=== PATIENT | male | born 1970 | race Caucasian/White ===

== ENCOUNTER 2017-07-26 09:01 | Emergency (ER) | payer OTHER, BC ==
[2017-07-26] MEDS ORDERED: Metoclopramide 10 MG/2 ML SDV IVPUSH ONE (09:24)
[2017-07-26] MEDS ORDERED: HYDROmorphone 0.5 MG/0.5 ML Syringe IVPUSH ONE ×2 (09:24→10:39)
--- NOTE | 2017-07-26 09:29 | EDM.PDOC ---
ED HPI GENERAL MEDICAL PROBLEM - General Chief Complaint: Flank Pain Stated Complaint: L FLANK PAIN Time Seen by Provider: 07/26/17 09:24 Source of Information: Reports: Patient, Family (spouse) History Limitations: Reports: No Limitations - History of Present Illness INITIAL COMMENTS - FREE TEXT/NARRATIVE: 46-year-old male presents to the ED with acute onset of left flank pain starting about 2 hours ago. He was already at work when the pain hits suddenly in his left flank and radiates slightly around the left upper abdomen. Associated nausea and vomiting and constant feeling of need to either defecate or void. He had any problems with kidney stones in the past. Previous abdominal surgery. 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) Left Flank Pain Score (Numeric/FACES): 9 - Related Data Allergies Allergy/AdvReac Type Severity Reaction Status Date / Time No Known Allergies Allergy Verified 07/26/17 09:17 Home Meds: Home Meds Amitriptyline [Elavil] 25 mg PO BEDTIME 07/26/17 [History] Gabapentin [Neurontin] 1.5 tab PO DAILY 07/26/17 [History] Gabapentin [Neurontin] 300 mg PO BEDTIME 07/26/17 [History] Omeprazole 20 mg PO DAILY 07/26/17 [History] Ondansetron [Zofran ODT] 4 mg PO Q6H #5 tab.dis 07/26/17 [Rx] oxyCODONE HCl/Acetaminophen [Percocet 5-325 mg Tablet] 1 - 2 each PO Q4H PRN # 10 tablet 07/26/17 [Rx] Past Medical History Gastrointestinal History: Reports: GERD Psychiatric History: Reports: Depression, PTSD - Past Surgical History Musculoskeletal Surgical History: Reports: Arthroscopic Knee Social & Family History - Tobacco Use Smoking Status *Q: Never Smoker - Caffeine Use Caffeine Use: Reports: None - Recreational Drug Use Recreational Drug Use: No - Living Situation & Occupation Living situation: Reports: Occupation: Employed ED ROS GENERAL - Review of Systems Review Of Systems: See Below Constitutional: Denies: Fever, Chills, Malaise, Weakness, Fatigue, Weight Loss HEENT: Reports: No Symptoms Respiratory: Reports: No Symptoms Cardiovascular: Reports: No Symptoms Endocrine: Reports: No Symptoms GI/Abdominal: Reports: Abdominal Pain (Left upper lateral abdominal pain but primary pain is in the left flank.), Nausea, Vomiting (Associated with the onset of the pain.) : Reports: Frequency Musculoskeletal: Reports: Back Pain (Left flank pain of acute onset.) Skin: Reports: No Symptoms Neurological: Reports: No Symptoms Psychiatric: Reports: No Symptoms ED EXAM, RENAL/ - Physical Exam Exam: See Below Exam Limited By: No Limitations General Appearance: Alert, WD/WN, Mild Distress (Just finished vomiting.) Eye Exam: Bilateral Eye: Normal Inspection (No jaundice) Throat/Mouth: Normal Inspection, Normal Lips, Normal Teeth, Normal Oropharynx Head: Atraumatic, Normocephalic Neck: Normal Inspection, Supple, Non-Tender, Full Range of Motion Respiratory/Chest: No Respiratory Distress, Lungs Clear, Normal Breath Sounds, No Accessory Muscle Use Cardiovascular: Normal Peripheral Pulses, Regular Rate, Rhythm, No Edema, No Gallop, No Murmur GI/Abdominal: Soft, Non-Tender, No Organomegaly, No Abnormal Bruit, No Mass, Pelvis Stable, Abnormal Bowel Sounds (Male) Exam: No Hernia Back Exam: Normal Inspection, Full Range of Motion. No: CVA Tenderness (L), CVA Tenderness (R) Extremities: Normal Inspection, Normal Range of Motion, Non-Tender, No Pedal Edema Neurological: Alert, Oriented, CN II-XII Intact, Normal Cognition, Normal Gait Psychiatric: Normal Affect, Normal Mood Skin Exam: Warm, Dry, Intact, Normal Color, No Rash Course - Vital Signs Last Recorded V/S: Last Vital Signs Temp 36.2 C 07/26/17 09:14 Pulse 75 07/26/17 09:14 Resp 16 07/26/17 09:14 BP 148/98 H 07/26/17 09:14 Pulse Ox 100 07/26/17 09:14 - Orders/Labs/Meds Orders: Active Orders 24 hr Category Date Time Status URINALYSIS W/MICROSCOPIC [UA W/MICROSCOPIC] [URIN] Stat Lab 07/26/17 09:25 Uncollected Ketorolac [Toradol] Med 07/26/17 09:30 Active 30 mg IVPUSH ONETIME Sodium Chloride 0.9% [Normal Saline] 1,000 ml Med 07/26/17 09:30 Active IV ASDIRECTED Medication Orders Sodium Chloride (Normal Saline) 1,000 mls @ 150 mls/hr IV ASDIRECTED TAMELA Last Admin: 07/26/17 09:35 Dose: 150 mls/hr Ketorolac Tromethamine (Toradol) 30 mg IVPUSH ONETIME TAMELA Last Admin: 07/26/17 09:37 Dose: 30 mg Meds: Medications Generic Name Dose Route Start Last Admin Trade Name Freq PRN Reason Stop Dose Admin Sodium Chloride 1,000 mls @ 150 mls/hr 07/26/17 09:30 07/26/17 09:35 Normal Saline IV 150 mls/hr ASDIRECTED TAMELA Administration Ketorolac Tromethamine 30 mg 07/26/17 09:30 07/26/17 09:37 Toradol IVPUSH 30 mg ONETIME TAMELA Administration Discontinued Medications Generic Name Dose Route Start Last Admin Trade Name Freq PRN Reason Stop Dose Admin Hydromorphone HCl 0.5 mg 07/26/17 09:24 07/26/17 09:38 Dilaudid IVPUSH 07/26/17 09:25 0.5 mg ONETIME ONE Administration Hydromorphone HCl 0.5 mg 07/26/17 10:39 07/26/17 10:42 Dilaudid IVPUSH 07/26/17 10:40 0.5 mg STAT ONE Administration Metoclopramide HCl 10 mg 07/26/17 09:24 07/26/17 09:35 Reglan IVPUSH 07/26/17 09:25 10 mg ONETIME ONE Administration - Radiology Interpretation Free Text/Narrative:: 46-year-old male presents to the ED with acute onset of left flank pain with associated feeling of need to void and defecate and nausea and vomiting. Pain came on rather quickly about an hour and a half ago while he was at work. No past history of kidney stones. Benign abdominal examination. History and physical are compatible with renal colic. Stone must be high up in the proximal ureter clinically. Plan IV normal saline at 150 mils per hour. Given Dilaudid 0.5 mg with Reglan 10 mg and Toradol 30 mg IV for pain relief. Urinalysis and CT of the abdomen per renal protocol to be done. - Re-Assessments/Exams Free Text/Narrative Re-Assessment/Exam: 07/26/17 10:16 told there will be a delay in getting a CT of his abdomen and pelvis per renal protocol as the CT machine is undergoing routine maintenance and is torn down at this time. Tentatively a VF and running within the hour. 07/26/17 10:40: Pain is getting worse. Pain is moving also downwards in the abdomen suggesting the stone is moving. Will repeat Dilaudid 0.5 mg IV. 07/26/17 12:12 CT confirms a 5.5 mm stone in the distal left ureter at the UVJ. It is nearly in his urinary bladder. Is likely to pass this later today. He will therefore be discharged home with a urinary strainer. Percocet tabs 02/09/25 one or 2 every 4-6 hours needed for pain relief. 10 tablets provided. Note given to excuse him from the workplace today. Departure - Departure Time of Disposition: 12:12 Disposition: Home, Self-Care 01 Condition: Fair Clinical Impression: Renal colic on left side - Discharge Information Prescriptions: Ondansetron [Zofran ODT] 4 mg PO Q6H #5 tab.dis oxyCODONE HCl/Acetaminophen [Percocet 5-325 mg Tablet] 1 - 2 each PO Q4H PRN # 10 tablet PRN Reason: pain relief. Instructions: Renal Colic, [id number] Referrals: Leena Au DO [Primary Care Provider] - Forms: ED Department Discharge, ED Return to Work/School Form Additional Instructions: Evaluation in the emergency room today in regards to acute onset of left flank pain radiating to the left upper abdomen. History was compatible with renal colic and is now been confirmed by CT exam which shows a 4.5 mm stone in the lower portion of the left ureter 8 is nearly in the urinary bladder has proximal be quarter-inch to travel treatment is plenty of fluids today. Activity as tolerated. Strain urine through a strainer over the next day or so to make sure that she passed the stone. It will feel like a small palpable or walk. There were no other stones in either kidney to be problematic in the near future. Diet is no calcium added IV calcium supplements monitors soft drink intake to minimize oxalates which helped cause kidney stones. I did send her home with a few pain pills Percocet 02/09/25 one or 2 every 4-6 hours as needed for pain relief until the stone passes. Also Zofran 4 mg under the tongue every 4-6 hours if needed for nausea or vomiting induced by pain. Suggest taking the rest the day off of work. - My Orders Last 24 Hours: My Active Orders 07/26/17 09:25 URINALYSIS W/MICROSCOPIC [UA W/MICROSCOPIC] [URIN] Stat 07/26/17 09:30 Ketorolac [Toradol] 30 mg IVPUSH ONETIME Sodium Chloride 0.9% [Normal Saline] 1,000 ml IV ASDIRECTED - Assessment/Plan Last 24 Hours: My Active Orders 07/26/17 09:25 URINALYSIS W/MICROSCOPIC [UA W/MICROSCOPIC] [URIN] Stat 07/26/17 09:30 Ketorolac [Toradol] 30 mg IVPUSH ONETIME Sodium Chloride 0.9% [Normal Saline] 1,000 ml IV ASDIRECTED
[2017-07-26] MEDS ORDERED: Ketorolac 30 MG/ML SDV IVPUSH SCH (09:30)
[2017-07-26] MEDS ORDERED: Sodium Chloride 0.9% 1,000 ML IV SCH (09:30)
--- NOTE | 2017-07-26 12:06 | CT ---
CT abdomen and pelvis Technique: Multiple axial sections were obtained from above the dome of the diaphragm inferiorly through the pubic symphysis. Intravenous and oral contrast was not utilized. Study has been performed as a ureteral stone protocol. Comparison: No previous abdominal imaging. Findings: Inflammatory change is seen around the left kidney and around the left renal pelvis and proximal left ureter. Left ureter is dilated to the UVJ. These findings are caused by a 5.7 mm stone located within the distal left ureter at the UVJ. No other abnormal calcifications are seen along the course of the ureters. No abnormal calcifications are seen within the kidneys. Slight dependent atelectasis noted within both posterior lungs as an incidental note. Noncontrast appearance of the liver and spleen appears within normal limits. Adrenal glands show no nodule. Pancreas is within normal limits. Gallbladder shows no calcified gallstones. Aorta shows no aneurysmal dilatation. No retroperitoneal adenopathy or mesenteric abnormalities are seen. Appendix is seen which appears to be normal. No pelvic mass or adenopathy is seen. Impression: 1. Findings as noted above within the left kidney and ureter caused by an obstructing stone measuring 5.7 mm within the distal left ureter located at the UVJ. 2. Other incidental findings. Diagnostic code #3
== END 2017-07-26 12:35 | disposition home or self-care (01) ==
LOC: JD.ED 09:01 → EDBD 09:01 → JD.ED 12:35
DX: N20.1 Calculus of ureter (principal); K21.9 Gastro-esophageal reflux disease without esophagitis; F32.9 Major depressive disorder, single episode, unspecified; Z79.899 Other long term (current) drug therapy
CPT/HCPCS: 74176; 96361; 96374; 96375; 96376; 99284; J1170; J1885; J2765; J7040

== ENCOUNTER 2022-07-29 13:27 | Day surgery (SDC) | payer OTHER, BC ==
[~2022-07-29 13:27] MED LIST: Cefuroxime 10 MG/ML SYRINGE EYELF SCH; Lidocaine 1% PF 2 ML SDV INJECT SCH; Pilocarpine 4% Ophth Soln 15 ML Bot EYELF SCH
[2022-07-29] MEDS: Polymyxin B/Trimethoprim 10 ML Bottle EYELF SCH ×3 (14:01→15:54)
[2022-07-29] MEDS: Brimonidine 0.2% Ophth Soln 5 ML Bottle EYELF SCH ×3 (14:07→15:54)
[2022-07-29] MEDS: Phenylephrine 2.5% Ophth Soln 2 ML Bot EYELF SCH ×5 (14:12→15:27)
[2022-07-29] MEDS: Tropicamide 1% Ophth Soln 15 ML Bottle EYELF SCH ×4 (14:17→14:59)
[2022-07-29] MEDS ORDERED: Midazolam 1 MG/ML 2 ML SDV ONE (15:08)
[2022-07-29] MEDS: Tetracaine HCl/PF 0.5% 4 ML Bottle EYEBOTH SCH ×4 (15:08→15:40)
== END 2022-07-29 16:28 | disposition home or self-care (01) ==
LOC: JD.SDS 13:27
PROVIDERS: ATTEND Ophthalmology
DX: Q12.0 Congenital cataract (principal); H25.813 Combined forms of age-related cataract, bilateral; H16.103 Unspecified superficial keratitis, bilateral; H16.223 Keratoconjunctivitis sicca, not specified as Sjogren's, bilateral; H02.831 Dermatochalasis of right upper eyelid; H02.834 Dermatochalasis of left upper eyelid; G47.33 Obstructive sleep apnea (adult) (pediatric); K21.9 Gastro-esophageal reflux disease without esophagitis; Z98.890 Other specified postprocedural states; Z79.899 Other long term (current) drug therapy
CPT/HCPCS: 66984; J2250; V2632